=== PATIENT | female | born 1990 | race Caucasian/White ===

== ENCOUNTER 2020-11-26 09:23 | Outpatient (CLI) | payer OTHER ==
[~2020-11-26 09:23] MED LIST: IBUP-1222 PO; OXYC1TAB14 PO; PREN1TAB27 PO
[2020-11-26] MEDS ORDERED: CHOL10003 PO (09:47)
[2020-11-26] MEDS ORDERED: MULT-658 PO (09:47)
[2020-11-26] MEDS ORDERED: SUMA50TA4 PO (09:47)
== END 2020-11-26 23:59 | disposition home or self-care (01) ==
LOC: STAR 09:23
PROVIDERS: ATTEND Surgery
DX: Z20.822 Contact with and (suspected) exposure to COVID-19 (principal); K43.2 Incisional hernia without obstruction or gangrene
CPT/HCPCS: U0003

== ENCOUNTER 2020-12-02 09:06 | Day surgery (SDC) | payer OTHER ==
[~2020-12-02] VITALS: Ht 175.3 cm; Wt 135.8 kg
[~2020-12-02 09:06] MED LIST changes: +BUPIVACAINE/PF 0.5% ONE; +CHOL10003 PO; +EPINEPHRINE 1 MG/ML, 1ML ONE; +MULT-658 PO; +SUMA50TA4 PO
[2020-12-02 10:04] VITALS: BP 151/106
[2020-12-02] MEDS ORDERED: CHLORHEXIDINE 15 ML UDC ONE (10:10)
[2020-12-02 10:16] LABS: HCG UR SG 1.014 (1.003-1.030)
[2020-12-02] MEDS ORDERED: CHLORHEXIDINE 15 ML UDC PO ONE (10:30)
[2020-12-02] MEDS ORDERED: LACTATED RINGERS 1,000 ML IV SCH (10:30)
[2020-12-02] MEDS ORDERED: MIDAZOLAM 1 MG/ML, 2ML ONE (11:08)
[2020-12-02] MEDS ORDERED: FENTANYL PF 250 MCG/5ML ONE (11:08)
[2020-12-02] MEDS ORDERED: SUCCINYLCHOLINE 20 MG/ML, 10ML ONE (11:19)
[2020-12-02] MEDS ORDERED: DEXAMETHASONE 4 MG/ML, 5ML ONE (11:27)
[2020-12-02] MEDS ORDERED: ROCURONIUM 10MG/ML,5ML ONE (11:27)
[2020-12-02] MEDS ORDERED: PROPOFOL 10 MG/ML, 20ML ONE (11:27)
[2020-12-02] MEDS ORDERED: CEFAZOLIN 1,000 MG ONE ×2 (11:27)
[2020-12-02] MEDS ORDERED: SUGAMMADEX 200 MG/2 ML IVPush ONE (11:41)
[2020-12-02] MEDS ORDERED: MIDAZOLAM 1 MG/ML, 2ML IV PRN (12:00)
[2020-12-02] MEDS ORDERED: EPHEDRINE 50 MG/ML, 1ML IVPush PRN (12:00)
[2020-12-02] MEDS ORDERED: LABETALOL 5MG/ML, 20ML IV PRN (12:00)
[2020-12-02] MEDS ORDERED: FENTANYL PF 100 MCG/2ML IV PRN (12:00)
[2020-12-02] MEDS ORDERED: MEPERIDINE/PF 25MG/0.5ML IVPush PRN (12:00)
[2020-12-02] MEDS ORDERED: OXYcodone 5 MG/5 ML ORAL.SOL UDC PO PRN (12:00)
[2020-12-02] MEDS ORDERED: ALBUTEROL SULFATE 2.5 MG/3 ML NPPB PRN (12:00)
[2020-12-02] MEDS ORDERED: DIAZEPAM 5 MG/ML, 2ML IVPush PRN (12:00)
[2020-12-02] MEDS ORDERED: PROMETHAZINE 25 MG/ML, 1ML IVPush PRN (12:00)
[2020-12-02] MEDS ORDERED: PROMETHAZINE 12.5 MG SUPP PR PRN (12:00)
[2020-12-02] MEDS ORDERED: hydrALAzine 20 MG/ML, 1ML IV PRN (12:00)
[2020-12-02] MEDS ORDERED: DIPHENHYDRAMINE 50 MG/ML, 1ML IVPush PRN ×2 (12:00)
[2020-12-02] MEDS ORDERED: ACETAMINOPHEN 325 MG TABLET PO PRN (12:00)
[2020-12-02] MEDS ORDERED: ONDANSETRON 2MG/ML, 2ML IVPush PRN (12:00)
[2020-12-02] MEDS ORDERED: ACETAMINOPHEN 325 MG TABLET ONE (12:40)
[2020-12-02] MEDS ORDERED: PROMETHAZINE 25 MG/ML, 1ML ONE (12:45)
[2020-12-02] MEDS ORDERED: HYDROmorphone 1 MG/ML, 1ML INJ ONE (12:55)
[2020-12-02] MEDS: HYDROmorphone 1 MG/ML, 1ML INJ IVPush PRN ×4 (12:56→13:15)
[2020-12-02] MEDS ORDERED: hydrALAzine 20 MG/ML, 1ML ONE (13:11)
== END 2020-12-02 15:25 | disposition home or self-care (01) ==
LOC: OUT 09:06
PROVIDERS: ATTEND Surgery
DX: K43.2 Incisional hernia without obstruction or gangrene (principal); G43.909 Migraine, unspecified, not intractable, without status migrainosus; E66.9 Obesity, unspecified; Z68.41 Body mass index [BMI] 40.0-44.9, adult; Z88.8 Allergy status to other drugs, medicaments and biological substances; Z79.899 Other long term (current) drug therapy; Z98.890 Other specified postprocedural states
CPT/HCPCS: 49566; 49568; 81025; C1781; J0171; J0330; J0360; J0690; J1100; J1170; J2250; J2550; J2704; J3010; J7120